=== PATIENT | male | born 1965 | race Caucasian/White ===

== ENCOUNTER 2024-09-02 12:29 | Outpatient (CLI) | payer OTHER, SELFPAY ==
--- NOTE | 2024-09-02 12:33 | XR_ITS ---
FINAL REPORT CLINICAL HISTORY: Foot Pain x 2 years no injury COMPARISON: None FINDINGS: RIGHT FOOT 3 views of the right foot were obtained. There is no acute fracture or dislocation. Visualized joint spaces are normally aligned. Soft tissues are unremarkable. IMPRESSION: No acute bony abnormality. Reviewed, Interpreted and Dictated by Manfred Armijo MD Transcribed by Marilia Orantes Authenticated and [facility]
--- NOTE | 2024-09-02 12:33 | XR_ITS ---
FINAL REPORT CLINICAL HISTORY: Foot Pain x 2 years no injury COMPARISON: None FINDINGS: LEFT FOOT Three views of the left foot demonstrate no acute fracture or dislocation. The visualized joint spaces are normally aligned. The soft tissues are unremarkable. IMPRESSION: No acute bony abnormality. Reviewed, Interpreted and Dictated by Manfred Armijo MD Transcribed by Marilia Orantes Authenticated and [facility]
== END 2024-09-02 23:59 | disposition home or self-care (01) ==
LOC: RAD 12:30
PROVIDERS: PCP Nurse Practitioner Family; Visit Provider Nurse Practitioner
DX: M79.673 Pain in unspecified foot (principal)
CPT/HCPCS: 73630